=== PATIENT | female | born 1990 | race Caucasian/White ===

== ENCOUNTER 2018-04-03 16:37 | Observation (INO) ==
[2018-04-03] MEDS ORDERED: *HR* LORazepam 2 MG/ML VIAL IVP ONE (16:44)
[2018-04-03] MEDS ORDERED: Ondansetron 4 MG/2 ML VIAL IVP ONE (16:45)
[2018-04-03] MEDS ORDERED: 0.9 % Sodium Chloride 1,000 ML IVC ONE ×2 (16:47→18:15)
[2018-04-03] MEDS ORDERED: 0.9 % Sodium Chloride 1,000 ML ONE (16:48)
--- NOTE | 2018-04-03 16:49 | Emergency Department Note ---
Disposition Clinical Impression: Status epilepticus, Post-ictal confusion Disposition: Admitted As Inpatient Condition: Fair Time of Disposition: 20:49 General Adult HPI - General Stated complaint: AMS Time Seen by Provider: 04/03/18 16:42 Nursing Notes Reviewed: Yes Vital Signs Reviewed: Yes - History of Present Illness HPI Narrative: 27-year-old female presents from friend's house via EMS for evaluation of seizure-like activity. This is reportedly witnessed by the friend who is not bedside. No seizure-like activity witnessed by EMS. Patient was tachycardic and hypertensive on initial vitals at the scene and was combative in route. Patient has a known seizure history, ongoing rectal 25 mg by mouth daily. Per EMS her last medication intake was 1 week ago. She is a poorly from [place] and has not refilled her prescription secondary to financial constraints. Per EMS, patient reportedly smokes marijuana but has no other illicit substance intake. Arrival, patient is in soft restraints and tied to a backboard. His yelling out repeatedly, help." I was able to talk to her directly and help calm her down. Remove the restraints removed her from backboard. Though she was no longer combative, she did attempt to self induce vomiting by sticking her fingers down her throat. She is able to tell us her name and date of . She denies any EtOH or illicit substance intake today. She is able to tell me her anticonvulsive medication and his dose as well as her last intake was 1 week ago. She is not sure what happened and does not remember any seizure-like activity. Review of systems is limited as patient appears clinically post ictal. - Related Data Home Medications Medication Instructions Recorded Confirmed Unable To Obtain [Unable to Obtain] 04/03/18 04/03/18 Allergies Allergy/AdvReac Type Severity Reaction Status Date / Time Penicillins Allergy Anaphylaxis Verified 04/03/18 16:55 levetiracetam [From Keppra] AdvReac See Verified 04/03/18 17:41 Comments phenytoin [From Dilantin] AdvReac See Verified 04/03/18 17:41 Comments All systems ED: reviewed and negative except as stated. Review of Systems: As Per HPI Physical Exam Vital Signs Reviewed General: Patient is somnolent, oriented to self (name, ), location (hospital) , and in no acute distress. Head: atraumatic, normocephalic Eye: normal appearance, PERRL, EOMI, no scleral icterus, no conjunctival injection ENT: mucous membranes dry, normal external ear exam Neck: normal inspection, trachea midline, full ROM Chest: normal inspection, symmetric chest rise Respiratory: Good respiratory effort. Bilateral breath sounds are clear without wheezing, crackles, or rhonchi. Cardiovascular: Regular rate and rhythm. No clicks, rubs, gallops, or murmors. Normal heart sounds. Abdomen: Bowel sounds present normoactive x-4 quadrants. Abdomen is soft, nondistended, and nontender. No guarding or rebound. No organomegaly noted. Musculoskeletal: Spontaneously moving all extremities. Skin: warm, dry, intact. Multiple tattoos throughout with no evidence of cellulitis. Neuro: Alert and oriented x4. Sensation light touch intact. Psych: Patient's affect is appropriate for situation. Course Course Narrative: Lamictal 25 mg by mouth daily. Intake POC glucose is 136. Patient arrives with no clothing on her lower extremities. Her girlfriend, bedside, appears worried. She states the patient has had 5 seizures since 12: 28 today and was never fully recovered in between. The 4th seizure, patient was incontinent of urine. Girlfriend removed her clothing to clean and change her when the patient seized the 5th time and EMS was called. While in the ED, appx 30 min after arrival, patient seized again. She was being assisted to the bathroom when her legs buckled and she had generalized stiffening of her extremities. Mild tonic clonic jerking. Foaming at the mouth , non-responsive to command. She was carried to the bed, given 2mg ativan IV, O2 administered on non-rebreather. Patient has status epilepticus per report from her girlfriend of recurrent seizures without return to baseline. She was not at baseline before the seizure in the ED. After the 2mg ativan, she has not seized. She remains post- ictal. Per her girlfriend, patient's post-ictal period typically is combative. This is her disposition at this time; she is not cooperative in blood draw or EKG. After repeated attempts and multiple near needle sticks, will allow the patient to continue to come out of her post ictal phase. Her BP is 110 systolic. I hesitate to give additional sedation due to her BP. Fluids are running however patient is non-compliant in keeping her arm straight thus they are running very slowly. Additional IV sites precluded for the same problems as the blood draw. I discussed the patient with on-call neurology, Dr. Cummings. Will load with 1 g Keppra IV. Lower EEG for the morning. He is understandably concerned the patient may be having subclinical seizures given her recent recurrent seizures. On reexamination, her mentation is improving and she is coming around. I discussed the patient with the admitting hospitalist who agrees to accept the patient for continued evaluation monitoring. 10:50 p.m. Patient reexamined. She is awake, alert, conversive. Walking under her own power against advice. She is otherwise pleasant and cooperative. She does not have any recollection of our earlier interactions. Vital Signs Temperature 97.4 F L 04/03/18 16:39 Pulse Rate 88 04/03/18 16:39 Respiratory Rate 24 04/03/18 16:39 Blood Pressure 87/55 04/03/18 16:39 O2 Sat by Pulse Oximetry 97 04/03/18 16:39 Temperature 97.8 F 04/03/18 22:36 Pulse Rate 95 04/03/18 21:31 Respiratory Rate 16 04/03/18 22:36 Blood Pressure 112/78 04/03/18 22:36 O2 Sat by Pulse Oximetry 99 04/03/18 21:31 Oxygen Delivery Oxygen Delivery Simple Mask Medical Decision Making - Lab Data Result diagrams: 04/03/18 17:36 Lab Results 04/03/18 04/03/18 04/03/18 Range/Units 17:36 18:16 18:16 Sodium 136 (136-145) mEq/L Potassium 3.9 (3.5-5.1) mEq/L Chloride 110 H (98-107) mEq/L Carbon Dioxide 16 L (23-29) mEq/L BUN 6 (6-20) mg/dL Creatinine 0.81 (0.60-1.20) mg/dL Est GFR ( Amer) > 60 (> 60) Est GFR (Non-Af Amer) > 60 (> 60) BUN/Creatinine Ratio 7 (6-26) Glucose 83 (70-105) mg/dL Calculated Osmolality 279 L (280-300) Calcium 8.7 (8.6-10.3) mg/dL Magnesium 2.3 (1.6-2.6) mg/dL Urine Color Yellow (Yellow) Urine Clarity Cloudy A (Clear) Urine pH 5.0 (5.0-8.0) pH Units Ur Specific [place] 1.020 (1.010-1.025) Urine Protein 100 H (Neg-Trace) mg/dL Urine Glucose (UA) Normal (Normal) mg/dL Urine Ketones Negative (Negative) mg/dL Urine Blood Trace H (Negative) Urine Nitrite Negative (Negative) Urine Bilirubin Negative (Negative) Urine Urobilinogen Normal (Normal) mg/dL Ur Leukocyte Esterase Negative (Negative) Urine Microscopic RBC 0-3 (0-3) per hpf Urine Microscopic WBC 3-5 H (0-3) per hpf Ur Squamous Epith Cells Many H (None-Few) per lpf Ur Renal Epithelial Cell Few (None-Few) per hpf Amorphous Sediment Moderate H (Few) Urine Bacteria None Seen (None-Few) per hpf Hyaline Casts Few (None-Few) per lpf Urine Test Negative (Negative)
[2018-04-03] MEDS ORDERED: *HR* LORazepam 2 MG/ML VIAL IVP STA ×2 (17:00→18:14)
[2018-04-03] MEDS ORDERED: lamoTRIgine 25 MG TABLET PO STA (17:28)
[2018-04-03 18:14] LABS: BUN/Creatinine Ratio 7 (6-26); Blood Urea Nitrogen 6 mg/dL (6-20); Calcium 8.7 mg/dL (8.6-10.3); Carbon Dioxide 16 mEq/L (23-29); Chloride 110 mEq/L (98-107); Glucose 83 mg/dL (70-105); Magnesium 2.3 mg/dL (1.6-2.6); Osmolality,Calculated 279 (280-300); Potassium 3.9 mEq/L (3.5-5.1); Sodium 136 mEq/L (136-145); eGFR For African Americans > 60 (> 60); eGFR For Non-African Americans > 60 (> 60)
[2018-04-03 18:24] LABS: Bilirubin,Urine Negative (Negative); Blood,Urine Trace (Negative); Clarity,Urine Cloudy (Clear); Color,Urine Yellow (Yellow); Glucose,Urine (UA) Normal (Normal); Ketones,Urine Negative (Negative); Leukocyte Esterase,Urine Negative (Negative); Nitrite,Urine Negative (Negative); Protein,Urine 100 mg/dL (Neg-Trace); Urobilinogen,Urine Normal (Normal)
[2018-04-03 18:28] LABS: Bacteria,Urine None Seen per hpf (None-Few); Hyaline Casts,Urine Few per lpf (None-Few); RBC,Urine 0-3 per hpf (0-3); Squamous Epithelial Cell,Urine Many per lpf (None-Few)
[2018-04-03 18:40] LABS: Renal Epithelial Cells,Urine Few per hpf (None-Few)
[2018-04-03 18:41] LABS: Amorphous Sediment,Urine Moderate (Few)
--- NOTE | 2018-04-03 19:17 | Emergency Department Note ---
Disposition Clinical Impression: Status epilepticus, Post-ictal confusion Disposition: Admitted As Inpatient Condition: Fair General Adult HPI - General Chief complaint: ED Altered Mental Status Stated complaint: AMS Time Seen by Provider: 04/03/18 16:42 Source: EMS Limitations: altered mental status - History of Present Illness Pain Scale: 10 - Related Data Home Medications Medication Instructions Recorded Confirmed Unable To Obtain [Unable to Obtain] 04/03/18 04/03/18 Allergies Allergy/AdvReac Type Severity Reaction Status Date / Time Penicillins Allergy Anaphylaxis Verified 04/03/18 16:55 levetiracetam [From Keppra] AdvReac See Verified 04/03/18 17:41 Comments phenytoin [From Dilantin] AdvReac See Verified 04/03/18 17:41 Comments Past Medical History - Past Medical History Medical history: Reports: seizures Psychiatric history: Reports: no psych history - Social History Smoking Status: Current every day smoker Smokeless Tobacco Status: No Alcohol use: Reports: none Drug use: Reports: marijuana Physical Exam - General Limitations: altered mental status General appearance: appears intoxicated, lethargic, restraints present Course Vital Signs Temperature 97.4 F L 04/03/18 16:39 Pulse Rate 88 04/03/18 16:39 Respiratory Rate 24 04/03/18 16:39 Blood Pressure 87/55 04/03/18 16:39 O2 Sat by Pulse Oximetry 97 04/03/18 16:39 Temperature 97.3 F L 04/03/18 23:02 Pulse Rate 94 04/03/18 23:02 Respiratory Rate 20 04/03/18 23:02 Blood Pressure 101/61 04/03/18 23:02 O2 Sat by Pulse Oximetry 98 04/03/18 23:02 Oxygen Delivery Oxygen Delivery Simple Mask Medical Decision Making - Lab Data Result diagrams: 04/03/18 22:52 04/03/18 17:36 Lab Results 04/03/18 04/03/18 04/03/18 Range/Units 17:36 18:16 18:16 Sodium 136 (136-145) mEq/L Potassium 3.9 (3.5-5.1) mEq/L Chloride 110 H (98-107) mEq/L Carbon Dioxide 16 L (23-29) mEq/L BUN 6 (6-20) mg/dL Creatinine 0.81 (0.60-1.20) mg/dL Est GFR ( Amer) > 60 (> 60) Est GFR (Non-Af Amer) > 60 (> 60) BUN/Creatinine Ratio 7 (6-26) Glucose 83 (70-105) mg/dL Calculated Osmolality 279 L (280-300) Calcium 8.7 (8.6-10.3) mg/dL Magnesium 2.3 (1.6-2.6) mg/dL Urine Color Yellow (Yellow) Urine Clarity Cloudy A (Clear) Urine pH 5.0 (5.0-8.0) pH Units Ur Specific [place] 1.020 (1.010-1.025) Urine Protein 100 H (Neg-Trace) mg/dL Urine Glucose (UA) Normal (Normal) mg/dL Urine Ketones Negative (Negative) mg/dL Urine Blood Trace H (Negative) Urine Nitrite Negative (Negative) Urine Bilirubin Negative (Negative) Urine Urobilinogen Normal (Normal) mg/dL Ur Leukocyte Esterase Negative (Negative) Urine Microscopic RBC 0-3 (0-3) per hpf Urine Microscopic WBC 3-5 H (0-3) per hpf Ur Squamous Epith Cells Many H (None-Few) per lpf Ur Renal Epithelial Cell Few (None-Few) per hpf Amorphous Sediment Moderate H (Few) Urine Bacteria None Seen (None-Few) per hpf Hyaline Casts Few (None-Few) per lpf Urine Test Negative (Negative) Attestation Statement - Attestation Attestation: I examined this patient and my medical decision-making was reviewed with the Resident Physician. I agree with the documented findings, disposition and treatment plan as described except to the extent set forth below. Arrived combative s/p seizure. Staff unable to get blood from her, was able to get a fingerstick glucose which was normal. Seized again shortly thereafter, brief, GTC sz, given Ativan and O2. Afterward, uncooperative although awake, staff still unable to get blood, they were able to get a straight cath for urine. Girlfriend subsequently arrived and provided further info, says that she has very long post-ictal states, and this is typical for her after her seizures. Would like to see a sodium, but given the fact that she's been out of her Lamictal for a week and a half, today's presentation isn't unexpected. Still , with this prolonged post-ictal state and inability to complete evaluation, Dr. Busby's plan for admission is reasonable.
[2018-04-03] MEDS ORDERED: Naloxone 0.4 MG/ML INJ IVP PRN (21:10)
[2018-04-03] MEDS ORDERED: Acetaminophen 325 MG TABLET PO PRN (21:10)
[2018-04-03] MEDS ORDERED: *HR* LORazepam 2 MG/ML VIAL IVP PRN (21:12)
[2018-04-03] MEDS ORDERED: levETIRAcetam 1,000 MG in 0.9 % Sodium Chloride 100 ML IVPB ONE (21:32)
--- NOTE | 2018-04-03 22:10 | Internal Med History&Physical ---
Date of Encounter: 04/03/18 Time of Encounter: 20:00 Internal Medicine - H&P: HPI Chief complaint: Seizure Admitted From: Home Plans for Post Hospital Care: Home History of present illness: Ms. Bhatt is a 27 year old female present to ER for seizure activity. Past medical history is significant for epilepsy on by mouth lamotrigine. Patient is confused and when I saw her. History is obtained from her girlfriend at bedside. Patient has history of epilepsy for about 15 years, she is on lamotrigine but unclear the dosage. Patient recently moved from [place] to [place], she cannot get her seizure medication because of address change. Patient did not take her seizure medication for about 1 week to 1-1/2 week. Today she has at least 5-6 generalized seizure. Patient has tongue bite and urinary incontinence. Patient was treated with antivan in the emergency room and her seizure activity has stopped. When I saw her, she is still confused, but can opening eyes by verbal stimulation. Patient was admitted for further management. Past Med Surg Social Fam HX - Past Medical History Medical history: seizures Psychiatric history: no psych history - Social History Smoking Status: Current every day smoker Smokeless Tobacco Status: No Alcohol use: none Drug use: marijuana - Family History Mother History Unknown: Yes Internal Medicine - H&P: Meds Unable To Obtain [Unable to Obtain] 04/03/18 [History] 3 Allergy/AdvReac Type Severity Reaction Status Date / Time Penicillins Allergy Anaphylaxis Verified 04/03/18 16:55 levetiracetam [From Keppra] AdvReac See Verified 04/03/18 17:41 Comments phenytoin [From Dilantin] AdvReac See Verified 04/03/18 17:41 Comments All Systems PM: A 10-system review of systems was performed and is negative for pertinent findings except as documented above in the HPI. - Constitutional Vitals: Temp Pulse Resp BP Pulse Ox 97.4 F L 95 16 106/77 99 04/03/18 16:39 04/03/18 21:31 04/03/18 21:31 04/03/18 21:31 04/03/18 21:31 General appearance: Present: A&O X 1, no acute distress - Head Head exam: Present: atraumatic, normocephalic - Eye Eye exam: Present: PERRL, conjuntiva pink, sclera anicteric Pupils: Present: PERRL - Neck Neck exam general surgery: Present: supple, trachea midline. Absent: lymphadenopathy - Respiratory Respiratory exam: Present: CTAB. Absent: accessory muscle use, rales, rhonchi, wheezes - Cardiovascular Cardiovascular exam: Present: RRR, +S1, +S2. Absent: diastolic murmur, gallop, rubs, systolic murmur - GI/Abdominal GI/Abdominal exam: Present: normal bowel sounds, soft, no peritoneal signs. Absent: distended, tenderness - Extremities Exam Extremities exam: Present: warm, radial pulses palpable and symmetrical. Absent : calf tenderness, cyanotic, pedal edema - Neurological Exam Neurological exam: Present: CN II-XII intact, no focal deficits. Absent: pronater drift, facial droop, speech deficit - Skin Skin exam: Present: dry, intact Internal Med - H&P Results - Labs CBC & Chem 7: 04/03/18 17:36 Labs: BMP 04/03/18 17:36 Sodium 136 Potassium 3.9 Chloride 110 H Carbon Dioxide 16 L BUN 6 Creatinine 0.81 Glucose 83 Calcium 8.7 Urine 04/03/18 Range/Units 18:16 Urine Color Yellow (Yellow) Urine Clarity Cloudy A (Clear) Urine pH 5.0 (5.0-8.0) pH Units Ur Specific [place] 1.020 (1.010-1.025) Urine Protein 100 H (Neg-Trace) mg/dL Urine Glucose (UA) Normal (Normal) mg/dL - Assessment and plan (1) Epilepsy Current Visit: Yes Status: Acute Assessment and plan: Due to medication noncompliance. Will continue her by mouth home medication regime when she is fully awake alert. We will consult social worker clinical for medication prescription. Qualifiers: Epilepsy type: other generalized Intractability: not intractable Status epilepticus: without status epilepticus Qualified Code(s): G40.409 - Other generalized epilepsy and epileptic syndromes, not intractable, without status epilepticus (2) Seizure Current Visit: Yes Status: Acute Assessment and plan: Procedure activity has stopped. Patient is still confused. - Keep patient nothing by mouth, seizure precaution, aspiration precaution. - Ativan 2 mg iv PRN for seizure activities - Patient report keppra causing blood in stool. However, will give IV Keppra temporarily and in short time period to control the seizure, may switch to by mouth medication as patient is fully awake alert. (3) Post-ictal confusion Current Visit: Yes Status: Acute Assessment and plan: Close monitor patient - Time Spent With Patient Total time spent is greater than 50% in coordination of care (as documented) at patient's floor/unit and/or counseling patient: 40 minutes Greater than 35 minutes
[2018-04-03 23:05] LABS: Basophils # 0.1 K/mcL (0.0-0.2); Basophils % 0.3 %; Eosinophils % 0.2 %; Hematocrit 40.6 % (35.3-44.9); Hemoglobin 13.5 g/dL (11.5-15.4); Immature Granulocytes % 0.5 % (0-4); Lymphocytes # 2.2 K/mcL (0.6-4.6); Lymphocytes % 12.8 %; Mean Corpuscular HGB Conc 33.3 g/dL (31.6-35.5); Mean Corpuscular Volume 87.1 fL (83.0-100.0); Mean Platelet Volume 10.9 fL (9.4-12.4); Monocytes # 1.2 K/mcL (0.0-1.3); Monocytes % 6.8 %; Neutrophils # 13.8 K/mcL (1.6-8.9); Platelet Count 198 K/mcL (140-400); Red Blood Count 4.66 M/mcL (3.82-4.97); Red Cell Distribution Width 13.6 % (11.5-14.5); Segmented Neutrophils % 79.4 %
[2018-04-03] MEDS: 0.9 % Sodium Chloride 1,000 ML IVC SCH (23:09)
[2018-04-03] MEDS: Nicotine 21 MG PATCH.TD24 TD SCH (23:49)
[2018-04-04] MEDS ORDERED: Ketorolac 15 MG/ML VIAL IVP ONE ×2 (04:21→04:24)
[2018-04-04] MEDS ORDERED: OXYCODONE Oral CONC 10 MG/0.5 ML ORAL.SYG SL PRN (05:56)
[2018-04-04 06:02] LABS: Basophils % 0.4 %; Eosinophils # 0.1 K/mcL (0.0-0.6); Hematocrit 38.7 % (35.3-44.9); Hemoglobin 12.6 g/dL (11.5-15.4); Immature Granulocytes % 0.5 % (0-4); Lymphocytes % 17.9 %; Mean Corpuscular HGB Conc 32.6 g/dL (31.6-35.5); Mean Corpuscular Hemoglobin 28.2 pg (28.0-33.3); Mean Corpuscular Volume 86.6 fL (83.0-100.0); Mean Platelet Volume 10.5 fL (9.4-12.4); Monocytes # 0.8 K/mcL (0.0-1.3); Monocytes % 7.6 %; Platelet Count 190 K/mcL (140-400); Red Blood Count 4.47 M/mcL (3.82-4.97); Red Cell Distribution Width 13.8 % (11.5-14.5); Segmented Neutrophils % 72.6 %
[2018-04-04 06:24] LABS: BUN/Creatinine Ratio 10 (6-26); Blood Urea Nitrogen 6 mg/dL (6-20); Carbon Dioxide 18 mEq/L (23-29); Chloride 115 mEq/L (98-107); Glucose 81 mg/dL (70-105); Magnesium 1.9 mg/dL (1.6-2.6); Osmolality,Calculated 283 (280-300); Potassium 3.4 mEq/L (3.5-5.1); Sodium 138 mEq/L (136-145); eGFR For African Americans > 60 (> 60); eGFR For Non-African Americans > 60 (> 60)
[2018-04-04] MEDS: Nicotine 21 MG PATCH.TD24 TD SCH (07:59)
--- NOTE | 2018-04-04 07:59 | Neurology - Consult Note ---
Date of Encounter: 04/04/18 Time of Encounter: 07:54 Assessment and Plan (1) Status epilepticus Current Visit: Yes Status: Acute She has a known history of seizure and upon admission was indeed in status epilepticus. However this was treated with IV Ativan along with a loading dose of Keppra. Although she is a bit groggy she is arousable and follows commands and answers questions appropriately. She is back to her normal baseline. I anticipate maintaining her on Keppra 500 mg twice a day. We may need social work therapist to get involved to help her to get an [employer] medical card so that she can obtain her medications. Otherwise I would like to watch her for the remainder of the day. She remained stable throughout the day she can be discharged tomorrow. EEG is pending. Since she has a normal neurologic exam I do not feel that imaging is necessary at this time. I anticipate following up with her in my office after discharge. History of Present Illness HPI: The chart was reviewed, the patient was seen and examined. Ms. Bhatt is a 27 year old female with a known history of epilepsy who is seen for neurologic assessment secondary to breakthrough seizures progressing to status epilepticus. Patient has apparently moved from [place] to [place] with her significant other. Apparently she usually takes Lamictal for seizure control. However she is not been able to get an [facility] medical card and unfortunately has been out of medication for 1-2 months. Apparently yesterday she had multiple back to back seizures without recovering between episodes. This of course does constitute status epilepticus. She was treated with Ativan in the emergency room and per my directions was loaded with Keppra. About an hour or so after the seizures were over she was still postictal however was starting to arouse. Therefore thought it was okay to keep her here and not transfer her to an epilepsy unit. This morning she is awake and alert a little tired however back to her normal baseline. She states that she has been having seizures since the age of 12. Generally she states that she stares off prior to the seizure and then after a few moments goes into a generalized tonic-clonic episode. She did not encounter some bruising on the left side of her tongue. Labs reveal elevated white count yesterday at 17.4. This was due to due margination and her WBC count this morning is normal at 11.0. Electrolyte panel was essentially normal, BUN and creatinine are normal, glucose was normal at 83. Urinalysis reveals no evidence of infection. Urine test was negative. Urine tox screen was not completed. Apparently she admits to smoking marijuana. Past Med Surg Social Fam HX - Past Medical History Medical history: seizures Psychiatric history: no psych history - Social History Smoking Status: Current every day smoker Smokeless Tobacco Status: No Alcohol use: none Drug use: marijuana - Family History Mother History Unknown: Yes Medications and Allergies lamoTRIgine [Lamictal] 25 mg PO BID 04/04/18 [History] 3 Allergy/AdvReac Type Severity Reaction Status Date / Time Penicillins Allergy Anaphylaxis Verified 04/03/18 16:55 levetiracetam [From Keppra] AdvReac See Verified 04/03/18 17:41 Comments phenytoin [From Dilantin] AdvReac See Verified 04/03/18 17:41 Comments All Systems: The remainder of the systems were reviewed and are negative Review of Systems: The balance of the systems review was unremarkable. Physical Examination - Vital Signs Vital Signs: Initial Vital Signs Temp Pulse Resp BP Pulse Ox 97.4 F L 88 24 87/55 97 04/03/18 16:39 04/03/18 16:39 04/03/18 16:39 04/03/18 16:39 04/03/18 16:39 - Neurologic Detailed motor examination: full strength in all major muscle groups Motor examination - right side: 5/5: deltoids, biceps, triceps, wrist flexion, wrist extension, blasting entry specialist, hip flexors, tibialis Anterior, quadriceps, toe extension (EHL), plantarflexion Motor examination - left side: 5/5: deltoids, biceps, triceps, wrist flexion, wrist extension, hip flexors, blasting entry specialist, quadriceps, tibialis Anterior, toe extension (EHL), plantarflexion Mental Status Examination: awake, alert, oriented to person, oriented to place, oriented to time, follows commands appropriately, answers questions appropriately, no agnosia, no aphasia, no aproxia Cranial nerve examination: PERRL, EOMI, visual [place] intact, corneal reflexes brisk symmetrically, sensory to face intact, mastication intact, no facial asymmetry is present, no dysarthria, hearing is intact symmetrically, soft palate elevates bilaterally upon phonation, gag reflex intact, flexes SCM and trapezius muscles symmetrically with full power, tongue protrudes midline, no atrophy or facial fasiculations present Cerebellar examination: no dysmetria, performs finger to nose and heel to sher symmetrically without ataxia, no gait ataxia, no truncal ataxia, no difficulty with rapid alternating movements Results - Laboratory Findings CBC and BMP: 04/04/18 05:49 04/04/18 05:49 Abnormal lab findings: Abnormal lab results Potassium 3.4 mEq/L (3.5-5.1) L 04/04/18 05:49 Chloride 115 mEq/L (98-107) H 04/04/18 05:49 Carbon Dioxide 18 mEq/L (23-29) L 04/04/18 05:49 Calcium 8.0 mg/dL (8.6-10.3) L 04/04/18 05:49 Phosphorus 2.0 mg/dL (2.7-4.5) L 04/04/18 05:49 Urine Clarity Cloudy (Clear) A 04/03/18 18:16 Urine Protein 100 mg/dL (Neg-Trace) H 04/03/18 18:16 Urine Blood Trace (Negative) H 04/03/18 18:16 Urine Microscopic WBC 3-5 per hpf (0-3) H 04/03/18 18:16 Ur Squamous Epith Cells Many per lpf (None-Few) H 04/03/18 18:16 Amorphous Sediment Moderate (Few) H 04/03/18 18:16 Consult Discharge Plan - Plan Referrals: Joshua Cummings DO [Partnered Physician] - Matthew Rae MD [Non-Partnered Physician] - 04/13/18 10:30 am (Please take your new patient packet filled out to your appointment. Also take $125.00 with you to your appointment. Take picture ID, Ins. Card, list of all medications including over the counter meds. Show up 15 mins. early to your appointment. If you need to cancel please call [phone] within 24 hours of your appointment.)
[2018-04-04] MEDS: 0.9 % Sodium Chloride 1,000 ML IVC SCH (09:20)
[2018-04-04 11:14] VITALS: BP 112/78
[2018-04-04] MEDS ORDERED: Ketorolac 15 MG/ML VIAL IVP PRN ×2 (11:22→12:00)
[2018-04-04] MEDS ORDERED: Ondansetron 4 MG/2 ML VIAL IVP PRN ×3 (11:22→11:34)
[2018-04-04] MEDS ORDERED: Ketorolac 30 MG/ML VIAL IVP STA (11:23)
--- NOTE | 2018-04-04 13:53 | Discharge Summary ---
- NOTES TO OUTPATIENT PROVIDER Notes to Outpatient Provider: Follow up with neurology as directed. Date of Encounter: 04/04/18 Time of Encounter: 13:51 - Discharge Diagnosis (1) Seizure Priority: Primary Status: Acute (2) Post-ictal confusion Priority: Secondary Status: Acute (3) Epilepsy Priority: Secondary Status: Chronic Qualifiers: Epilepsy type: other generalized Intractability: not intractable Status epilepticus: without status epilepticus Qualified Code(s): G40.409 - Other generalized epilepsy and epileptic syndromes, not intractable, without status epilepticus Hospital course: Ms. Bhatt is a 27 year old female admitted for seizure likely secondary to non-compliance with anti-epileptic. She was admitted to step down unit with telemetry. She had some post-ictal confusion at the time of admission. She was treated with ativan in the ED prior to admission. Neurology was consulted, and started her on keppra. The next morning, patient was alert and oriented. She had no further seizure activity. Neurology recommended EEG and observation today. She states that she wants to go home. I counselled her on the importance of making sure she had no further seizure activity on keppra. I counselled her on the risks of further seizures, including the risk of with status epilepticus. She is adamant about going home today and states that she will leave against medical advice. 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 She nonetheless wants to leave AMA. I will provide her with a 1 month prescription for keppra, despite her leaving AMA. Nursing staff will make sure she has follow up appointment with neurology. Patient left AMA. Discharge discussed with: patient, family, nurse, social work - Time Spent with Patient Total time spent providing and/or coordinating discharge services: Less than 30 minutes - Discharge Medications Prescriptions: LevETIRAcetam [Keppra] 500 mg PO BID 30 Days #60 tablet Home Medications: LevETIRAcetam [Keppra] 500 mg PO BID 30 Days #60 tablet 04/04/18 [Rx] Nicotine Patch [Nicoderm] 21 mg TD DAILY patch.[id number] 04/04/18 [Rx] Allergies/Adverse Reactions: 3 Allergy/AdvReac Type Severity Reaction Status Date / Time Penicillins Allergy Anaphylaxis Verified 04/03/18 16:55 levetiracetam [From Keppra] AdvReac See Verified 04/03/18 17:41 Comments phenytoin [From Dilantin] AdvReac See Verified 04/03/18 17:41 Comments Date of admission: 04/03/18 22:15 Primary care physician: PCP NONE Consults: 04/03/18 22:38 Consult to Neurology [CONS] Stat Consulting Provider: Neu[facility] Reason for Consult: break through seizure, med non-compliance, no local neurologist (from [place], recently moved to the area) Time Notified: 22:39 Call Completed: Yes 04/04/18 12:47 Consult to Interpret Exam [CONS] Routine Consulting Provider: Joshua Cummings Consult to Interpret Exam: Interpret EEG - Constitutional Vitals: Temp Pulse Resp BP Pulse Ox 97.9 F 85 18 112/78 94 04/04/18 07:32 04/04/18 11:42 04/04/18 11:09 04/04/18 11:09 04/04/18 11:09 General appearance: Present: A&O X 3, no acute distress, answers questions appropriately - Head Head exam: Present: atraumatic, normal inspection, normocephalic - Eye Eye exam: Present: EOMI, PERRL. Absent: conjunctival injection, nystagmus, scleral icterus - Respiratory Respiratory exam: Present: CTAB. Absent: accessory muscle use, rales, rhonchi, wheezes Additional comments: Normal WOB - Cardiovascular Cardiovascular exam: Present: RRR, +S1, +S2. Absent: diastolic murmur, gallop, rubs, systolic murmur Additional comments: No BLE edema - GI/Abdominal GI/Abdominal exam: Present: normal bowel sounds, soft. Absent: distended, hepatomegaly, mass, splenomegaly, tenderness - Neurological Exam Neurological exam: Present: alert, CN II-XII intact, oriented X3, no focal deficits, strengths equal and symetr throughout. Absent: motor sensory deficit , facial droop, speech deficit - Psychiatric Psychiatric exam: Present: normal affect, normal mood. Absent: agitated, anxious, depressed - Skin Skin exam: Present: dry, intact, warm. Absent: cyanosis, rash - Patient Status Disposition: Left Against Medical Advice Condition: Fair Overall status at discharge: patient is progressing back to baseline - Discharge Instructions Follow Up With: Joshua Cummings DO [Partnered Physician] - 04/11/18 1:45 pm (1 week) Matthew Rae MD [Non-Partnered Physician] - 04/13/18 10:30 am (Please take your new patient packet filled out to your appointment. Also take $125.00 with you to your appointment. Take picture ID, Ins. Card, list of all medications including over the counter meds. Show up 15 mins. early to your appointment. If you need to cancel please call [phone] within 24 hours of your appointment.) Additional Instructions: Follow up with neurology as directed. - Diet and Activity Activity: return to work once cleared by your PCP/specialist Diet: advance to your usual diet - VTE Documentation of Mechanical Device: Intermittent pneumatic compression device
--- NOTE | 2018-04-05 09:41 | EEG/EMG/Oth Biometrics Report ---
EEG Procedure Report Date of procedure: 04/05/18 EEG Procedure: Routine EEG Procedure Note: This is a report of a 21 channel bipolar and referential montage EEG. Patient has a known history of epilepsy. A posterior dominant rhythm of 9-10 Hz moderate voltage alpha frequencies identified symmetrically in the posterior head regions. This rhythm attenuates symmetrically with eye opening. Hyperventilation was not performed in recording. Periods of drowsiness and stage II sleep identified as reference by dropout of the posterior dominant rhythm and emergence of vertex activity K complexes and sleep spindles. Bursts of moderate to high voltage delta frequencies are also identified as a normal sleep variant. Photic stimulations performed and produces a symmetric driving response. EKG rhythm strip reveals normal sinus rhythm at 84 bpm. Impressions: This EEG recording is within normal limits. There is no evidence of epileptiform activity identified during the study. Comment: A normal EEG does not preclude a diagnosis of seizure or epilepsy. If the clinical suspicion for seizure activity is high, serial EEGs or perhaps a prolonged recording may increase the yield. Please correlate clinically.
== END 2018-04-04 14:27 | disposition left against medical advice (07) ==
LOC: 2NNU 16:37 → EMEROO 16:37 → 2NNU 22:35
PROVIDERS: ADMIT Internal Medicine Nephrology; ATTEND Internal Medicine Nephrology